=== PATIENT | male | born 1995 | race Two or more races ===

== ENCOUNTER 2024-01-05 14:46 | Emergency (ER) | payer MEDICAID ==
[~2024-01-05] VITALS: Ht 154.9 cm; Wt 77.1 kg
[2024-01-05] MEDS ORDERED: LIDOCAINE 0.5%-EPI 1:200,000 50 ML VIAL ONE (15:49)
[2024-01-05] MEDS: LIDOCAINE 1%-EPI 1:200,000 SDV 10 ML VIAL IJ STA (16:19)
[2024-01-05] MEDS ORDERED: TDAP [DIPH/PERTUSSIS/TET] 0.5 ML VIAL IM ONE (16:26)
[2024-01-05] MEDS: TDAP [DIPH/PERTUSSIS/TET] 0.5 ML VIAL IM ONE (16:32)
[2024-01-05 18:16] VITALS: BP 130/85; TEMP 98.3; O2SAT 99
== END 2024-01-05 18:19 | disposition home or self-care (01) ==
LOC: ER 14:51
DX: S61.411A Laceration without foreign body of right hand, initial encounter (principal); W26.0XXA Contact with knife, initial encounter; Y93.89 Activity, other specified; Y92.090 Kitchen in other non-institutional residence as the place of occurrence of the external cause; Y99.0 Civilian activity done for income or pay
CPT/HCPCS: 12002; 90471; 90715; 99283; A6403; J3490

== ENCOUNTER 2024-01-07 14:54 | Emergency (ER) | payer MEDICAID ==
[~2024-01-07] VITALS: Ht 167.6 cm; Wt 67.6 kg
[2024-01-07 14:57] VITALS: BP 122/77; TEMP 98; O2SAT 97
== END 2024-01-07 15:20 | disposition home or self-care (01) ==
LOC: ER 14:56
DX: Z48.00 Encounter for change or removal of nonsurgical wound dressing (principal)

== ENCOUNTER 2024-01-14 06:20 | Emergency (ER) | payer MEDICAID ==
[~2024-01-14] VITALS: Ht 162.6 cm; Wt 67.6 kg
[2024-01-14 06:26] VITALS: BP 128/70; TEMP 98.3
[2024-01-14] MEDS: BACI/NEOM/POLY B OINT PKT 1 UDPKT PACKET TP ONE (06:37)
[2024-01-14] MEDS ORDERED: CEPH-570 PO (07:27)
[2024-01-14 07:36] VITALS: O2SAT 99
== END 2024-01-14 07:42 | disposition home or self-care (01) ==
LOC: ER 06:21
DX: S61.411D Laceration without foreign body of right hand, subsequent encounter (principal); X58.XXXD Exposure to other specified factors, subsequent encounter

== ENCOUNTER 2024-01-15 14:36 | Emergency (ER) | payer MEDICAID ==
[~2024-01-15] VITALS: Ht 170.2 cm; Wt 67.6 kg
[~2024-01-15 14:36] MED LIST: CEPH-570 PO
[2024-01-15 14:40] VITALS: BP 128/92; TEMP 98.6
[2024-01-15 14:52] VITALS: O2SAT 99
== END 2024-01-15 15:04 | disposition home or self-care (01) ==
LOC: ER 14:44
DX: S61.419D Laceration without foreign body of unspecified hand, subsequent encounter (principal); Z60.2 Problems related to living alone; X58.XXXD Exposure to other specified factors, subsequent encounter